=== PATIENT | female | born 1940 | race Caucasian/White ===

== ENCOUNTER 2019-04-28 08:13 | Inpatient (IN) | payer MEDICARE ==
[~2019-04-28 08:13] MED LIST: ACETAMINOPHEN 1,000 MG/100 ML BTL IVPB ONE; ACETAMINOPHEN 325 MG TAB PO PRN; ACETAMINOPHEN W/ CODEINE 300MG/30MG TABLET PO PRN; ACETAMINOPHEN W/ CODEINE 300MG/60MG TABLET PO PRN; AL HYDROX/MAG HYDROX 30ML UD PO PRN; BISACODYL 10 MG SUPP RC PRN; CELECOXIB 100 MG CAPSULE PO ONE; CLINDAMYCIN PHOS/D5W 900MG 900 MG/50 ML BAG IVPB ONE; DIPHENHYDRAMINE HCL 25 MG CAPSULE PO PRN; FAMOTIDINE 20MG TABLET PO ONE; HYDROCODONE/APAP 5/325MG TABLET PO PRN; HYDROCODONE/APAP 7.5/325MG TABLET PO PRN; HYDROMORPHONE HCL 2 MG/ML VIAL IM PRN; KETOROLAC 30 MG/ML VIAL IVP PRN; MAGNESIUM HYDROXIDE 30 ML UDC PO PRN; METOCLOPRAMIDE 10 MG TABLET PO ONE; METOCLOPRAMIDE HCL 10 MG/2 ML VIAL IVP PRN; NALOXONE 0.4 MG/1 ML VIAL IVP PRN; ONDANSETRON HCL IV 4 MG/2 ML VIAL IVP PRN; PROMETHAZINE HCL 12.5 MG in 0.9 % SODIUM CHLORIDE 100ML 50 ML IVPB PRN; RINGERS SOLUTION,LACTATED 1,000 ML IV ONE; SCOPOLAMINE 1 PATCH TDSY TD ONE; TRAMADOL HCL 50 MG TABLET PO PRN; VANCOMYCIN 1GM/200ML PREMIX 1 GM/200 ML PIGGYBACK IVPB ONE; ZOLPIDEM TARTRATE 5 MG TABLET PO PRN
[2019-04-28] MEDS ORDERED: RINGERS SOLUTION,LACTATED 1,000 ML IV ONE ×2 (08:55→10:38)
[2019-04-28 09:22] LABS: ABO GROUP A; ANTIBODY SCREEN NEGATIVE (NEGATIVE); RH TYPE POSITIVE
[2019-04-28] MEDS ORDERED: BUPIVACAINE 0.5% W/EPI MPF 30 ML VIAL SQ ONE (10:29)
[2019-04-28] MEDS ORDERED: BUPIVACAINE LIPOSOME 266MG/20ML VIAL SQ ONE (10:29)
[2019-04-28] MEDS ORDERED: VANCOMYCIN HCL 3,000 MG in RINGERS SOLUTION,LACTATED 3,000 ML IVPB ONE (10:39)
[2019-04-28] MEDS ORDERED: DEXTROSE 5 % AND 0.9 % NACL 1,000 ML IV PRN (12:30)
[2019-04-28] MEDS ORDERED: ROPIVACAINE HCL (NAROPIN) /PF 5MG/ML 20ML VIAL IV ONE (14:00)
[2019-04-28] MEDS ORDERED: DEXAMETHASONE 4 MG/ML 1ML VIAL IVP ONE (14:00)
[2019-04-28] MEDS ORDERED: BENZONATATE 100 MG CAPSULE PO PRN (15:15)
--- NOTE | 2019-04-28 15:51 | Rehab Evaluation ---
Patient Information - Patient Information Diagnosis: DJD Left Knee Ordered Treatment: PT Evaluate and Treat Status: Initial Evaluation Surgery: Yes (L TKA) Date of Surgery: 04/28/19 Past Medical/Surgical Hx: PAST MEDICAL/SURGICAL HISTORY Surgery to Affected Area? No Recent Surgery? Past Surgical History Right total knee 2005 Hysterectomy 1975 cholecystectomy in x2 surgeries on neck, including a plate in neck 1998 tubes placed in ears PMH - Respiratory Hx Respiratory Disorders Yes Hx Bronchitis Yes Hx Chronic Obstructive Yes Pulmonary Disease (COPD) Hx Sleep Apnea Yes Hx of CPAP No Hx of URI Yes: none recent Hx of Productive Cough Yes: none recent PMH - Cardiovascular Hx Cardiovascular Disorders Yes Hx Cardiac Catheterization Yes: x2, 2014 last one Hx Chest Pain Yes Hx Edema Yes Hx Hypertension Yes Exercise Tolerance Fair Comment: has recorder placed to heart, no longer recording PMH - Neuro Hx Neurological Disorders Yes Hx Seizures Yes: last seizure was in 2008 Hx Syncope Yes PMH - GI Hx Gastrointestinal Disorders Yes Hx Gastroesophageal Reflux Yes Hx Irritable Bowel Yes PMH - Hx Genitourinary Disorders Yes Hx Urinary Tract Infection Yes: last 1 month ago in february PMH - Endocrine Hx Endocrine Disorders Yes Hx Thyroid Disease Yes PMH - Musculoskeletal Hx Musculoskeletal Disorders Yes Hx Arthritis Yes PMH - Psych Hx Psychiatric Problems Yes Hx Anxiety Yes Hx Depression Yes Comment: Lost all three children last few years PMH - Hematology/Oncology Hx Hematology/Oncology No Disorders Premorbid Status: Detail (Patient reports that prior to surgery, patient reported assistance with activities of daily living from her granddaughter and her . Patient reports that she has a 4-wheel walker, straight cane, and 4-point cane available at home.) Social History: Detail (Patient reports that she lives in a 2-story home with her granddaughter, her , and their children. She reports that she will be staying on the main floor following surgery. Patient reports that there are 3 1/2 steps entering the home and patient ascends/descends stairs side stepping holding on to one railing with bilateral hands. Patient reports that bathroom has a tub/shower combination with grab bars available and hand-held shower component. Patient reports that she has a shower bench available for the shower. Patient reports that the toilet is standard height with no grab bars available. However, patient reports that shower is small enough that she can use the sink in front for support if needed. Patient reports that she will be attending inpatient rehab following discharge and plans to stay there for at least 2 weeks. Upon discharge from inpatient rehab, patient plans on leaving in [facility].) - Time With Patient Total Time Spent With Patient (Min): 20 Subjective Information - Subjective Information Per Patient (Patient reports no pain throughout therapy session. Patient reports that her surgical knee already "bends" more than it did prior to surgery.) Objective Data - Mental Status Patient Orientation: Oriented x3 - ROM Not within normal limits (Patient's range of motion was assessed functionally with bed mobility, sit to stand transfer, and ambulation. Patient's lower left extremity is limited due to post-surgical status, as expected. All other lower extremity range of motion was found to be within functional limits.) - Strength/Tone Not within normal limits (Patient's strength was assessed functionally with bed mobility, sit to stand transfer, and ambulation. Patient's left lower extremity has decreased strength due to post-surgical status, as expected. All other lower extremity range of motion was grossly assessed and determined to be within functional limits.) - Coordination Appears within normal limits for therapeutic activities - Bed Mobility Independent (Patient was supine in bed at initial portion of therapy session. Patient completed transfer from supine to sitting L EOB and required lowering the bed to help with transition, but required only supervision assistance for safety.) - Transfers Independent (Patient completed sit to stand transfer from sitting L EOB with 2- wheeled walker for support and CGAx1 for safety.) - Gait Detail (Patient ambulated total of 123 feet using 2-wheeled walker for support and CGAx1 for safety. Patient demonstrated antalgic gait pattern, with decreased heel strike on left lower extremity and decreased knee flexion/extension, as expected due to post-surgical status.) Therapy Assessment - Therapy Assessment Detail (Patient was independent with bed mobility, sit to stand transfers, and ambulation requiring supervision/contact guard assistance for safety. Patient is recommended to receive follow-up appointment to assess stair training and post- surgical exercise program.) Problem List - Problem List Physical Therapy Problem List: Detail (1. Decreased left lower extremity strength due to post-surgical status. 2. Decreased left lower extremity range of motion due to post-surgical status. 3. Altered gait pattern due to compensations over time due to pain.) Goals - Goals Physical Therapy Goals: 1. Patient will ascend / descend 3 steps using bilateral hand rails. 2. Patient will be independent in home exercise program. Prognosis - Prognosis Good (With follow-up visit, patient is projected to meet physical therapy goals to help with transition to inpatient rehab. Patient is foreseen with additional therapy to progress towards independence in functional activities.) Plan - Plan Physical Therapy Plan: Patient will receive 1-2 visits for follow-up to assess stairs and home exercise program to assure that patient is prepared for discharge to inpatient rehab PT.
[2019-04-28] MEDS: BREO (FLUTICASONE/VILANTEROL) 200MCG/25MCG INHALER INH SCH (17:21)
[2019-04-28] MEDS ORDERED: PATIENT OWN MED: PROAIR HFA INH PRN (17:30)
[2019-04-28] MEDS: HYDROCODONE/APAP 7.5/325MG TABLET PO PRN (19:43)
[2019-04-28] MEDS: VANCOMYCIN 1GM/200ML PREMIX 1 GM/200 ML PIGGYBACK IVPB SCH (20:39)
[2019-04-28] MEDS: DOCUSATE SODIUM 100 MG CAPSULE PO SCH (21:08)
[2019-04-28] MEDS: CARVEDILOL 3.125 MG TABLET PO SCH (21:08)
[2019-04-28] MEDS: FERROUS SULFATE 325 MG TAB PO SCH (21:08)
[2019-04-28] MEDS ORDERED: EZETIMIBE 10 MG TABLET PO SCH (22:00)
[2019-04-28] MEDS ORDERED: PHENOBARBITAL 60 MG PO SCH (22:00)
[2019-04-28] MEDS ORDERED: TRAZODONE 50 MG TABLET PO SCH (22:00)
[2019-04-28] MEDS ORDERED: OXYBUTYNIN CHLORIDE 5MG TABLET PO SCH (22:00)
[2019-04-28] MEDS ORDERED: SIMVASTATIN 20 MG TABLET PO SCH (22:00)
[2019-04-29 06:40] LABS: HEMATOCRIT 30.4 % (35.0-47.0); HEMOGLOBIN 9.4 gm/dl (11.6-16.0)
[2019-04-29] MEDS: HYDROCODONE/APAP 7.5/325MG TABLET PO PRN ×2 (06:43→12:41)
[2019-04-29] MEDS ORDERED: LEVOTHYROXINE SODIUM 50 MCG TABLET PO SCH (07:00)
[2019-04-29] MEDS ORDERED: LEVOTHYROXINE SODIUM 100 MCG TABLET PO SCH (07:00)
[2019-04-29] MEDS: VANCOMYCIN 1GM/200ML PREMIX 1 GM/200 ML PIGGYBACK IVPB SCH (09:02)
[2019-04-29] MEDS ORDERED: VANCOMYCIN HCL 1 GM VIAL IVPB ONE (09:36)
[2019-04-29] MEDS ORDERED: TRANEXAMIC ACID 1,000 MG/10 ML ML IV ONE (09:36)
[2019-04-29] MEDS: BREO (FLUTICASONE/VILANTEROL) 200MCG/25MCG INHALER INH SCH (09:58)
[2019-04-29] MEDS ORDERED: LOSARTAN POTASSIUM 100 MG TABLET PO SCH (10:00)
[2019-04-29] MEDS ORDERED: PHENOBARBITAL 60 MG PO SCH (10:00)
[2019-04-29] MEDS ORDERED: PAROXETINE HCL 10 MG TABLET PO SCH (10:00)
[2019-04-29] MEDS ORDERED: HYDROCHLOROTHIAZIDE 25 MG TABLET PO SCH (10:00)
[2019-04-29] MEDS ORDERED: LISINOPRIL 10 MG TABLET PO SCH (10:00)
[2019-04-29] MEDS ORDERED: CELECOXIB 100 MG CAPSULE PO SCH (10:00)
[2019-04-29] MEDS ORDERED: RIVAROXABAN 10 MG TABLET PO SCH (10:00)
--- NOTE | 2019-04-29 10:03 | Rehab Evaluation ---
Patient Information - Patient Information Diagnosis: DJD Left Knee Ordered Treatment: OT Evaluate and Treat Status: Initial Evaluation Surgery: Yes (L TKA) Date of Surgery: 04/28/19 Past Medical/Surgical Hx: PAST MEDICAL/SURGICAL HISTORY Surgery to Affected Area? No Recent Surgery? Past Surgical History Right total knee 2005 Hysterectomy 1975 cholecystectomy in x2 surgeries on neck, including a plate in neck 1998 tubes placed in ears PMH - Respiratory Hx Respiratory Disorders Yes Hx Bronchitis Yes Hx Chronic Obstructive Yes Pulmonary Disease (COPD) Hx Sleep Apnea Yes Hx of CPAP No Hx of URI Yes: none recent Hx of Productive Cough Yes: none recent PMH - Cardiovascular Hx Cardiovascular Disorders Yes Hx Cardiac Catheterization Yes: x2, 2014 last one Hx Chest Pain Yes Hx Edema Yes Hx Hypertension Yes Exercise Tolerance Fair Comment: has recorder placed to heart, no longer recording PMH - Neuro Hx Neurological Disorders Yes Hx Seizures Yes: last seizure was in 2008 Hx Syncope Yes PMH - GI Hx Gastrointestinal Disorders Yes Hx Gastroesophageal Reflux Yes Hx Irritable Bowel Yes PMH - Hx Genitourinary Disorders Yes Hx Urinary Tract Infection Yes: last 1 month ago in february PMH - Endocrine Hx Endocrine Disorders Yes Hx Thyroid Disease Yes PMH - Musculoskeletal Hx Musculoskeletal Disorders Yes Hx Arthritis Yes PMH - Psych Hx Psychiatric Problems Yes Hx Anxiety Yes Hx Depression Yes Comment: Lost all three children last few years PMH - Hematology/Oncology Hx Hematology/Oncology No Disorders Premorbid Status: Detail (Patient reports that prior to surgery, she was living with her granddaughter and her granddaughter's and kids and independent with ADLs. She was falling up to 3x/day d/t her L knee giving out. Patient reports that she lives in a 2-story home with 2 JOE and L HR that she holds with B UEs, she does not need to access the second floor. The bathroom has a tub/shower combination with a grab bar, shower chair, and hand-held shower hose. She typically stands to shower. Patient reports that the toilet is standard height with a grab bar. She has a FWW, 4WW, and single-point cane. She feels she is near functional baseline and would be okay going home.) Precautions: [place], Fall, Other (FWB L LE) - Time With Patient Total Time Spent With Patient (Min): 30 (1 eval) Treatment Procedures: Detail (OT eval: low complexity) Subjective Information - Subjective Information Per Patient (Ok to see per RN Jordyn. Pt agreeable to OT eval.) Objective Data - Pain Pain Present: No Pain Scale Used: Numeric (1 - 10) (0/10) - Mental Status Patient Orientation: Oriented x3 - Visual Perception Appears within normal limits for therapeutic activities - ROM Within normal limits (B UEs WFL) - Strength/Tone Within normal limits (B UE WFL) - Coordination Appears within normal limits for therapeutic activities - Bed Mobility Independent (supine > EOB) - Transfers Independent (sit >< stand from low surfaces with FWW and/or GB, good balance) - Balance Balance Sitting: Good Balance Standing: Good (standing pant mgmt at toilet with light use of GB to R side which Pt reports she has next to her toilet at home) - Sensation Intact - Gait Detail (Functional mobility within bedroom with FWW and CGA progressing to MOD I, no safety concerns and good balance.) - ADL's/IADL's Detail (OT educates PT on modified technique for LB dressing, Pt demos MOD I to don underwear, pants, socks with good standing pant mgmt and use of adaptive technique. Pt demos MOD I with use of GB for simulated tub/shower TF and verbalizes understanding of therapist education re: home safety with showering, kitchen, and bathroom.) Therapy Assessment - Therapy Assessment Detail (Pt demos good safety and modified independence with all ADLs and functional TFs with FWW and appears safe for DC home when medically ready. Pt is agreeable to home DCP and feels she will have no troubles at home, "if anything I'm better than before, my knee isn't giving out.") Patient Education - Patient Education Teaching Topic: Other (adaptive techniques, home mods) Response: Return Demonstration, Verbalize Understanding Teaching Method: Discussion, Demonstration Teaching Recipient: Patient Barriers To Learning: None Problem List - Problem List Physical Therapy Problem List: Detail (1. Decreased left lower extremity strength due to post-surgical status. 2. Decreased left lower extremity range of motion due to post-surgical status. 3. Altered gait pattern due to compensations over time due to pain.) Occupational Therapy Problem List: Detail (No further IP OT needs identified.) Goals - Goals Physical Therapy Goals: 1. Patient will ascend / descend 3 steps using bilateral hand rails. 2. Patient will be independent in home exercise program. Occupational Therapy Goals: No further IP OT needs/goals identified. Prognosis - Prognosis Good Plan - Plan Physical Therapy Plan: Patient will receive 1-2 visits for follow-up to assess stairs and home exercise program to assure that patient is prepared for discharge to inpatient rehab PT. Occupational Therapy Plan: No further IP OT needs identified. DC IP OT. Thank you for this referral.
[2019-04-29] MEDS: CARVEDILOL 3.125 MG TABLET PO SCH (10:53)
[2019-04-29] MEDS: DOCUSATE SODIUM 100 MG CAPSULE PO SCH (10:53)
[2019-04-29] MEDS: FERROUS SULFATE 325 MG TAB PO SCH (10:53)
--- NOTE | 2019-04-29 11:04 | Physical Therapy Tx Note ---
Physical Therapy Tx Note - Treatment Note Tolerated: Good Total Time Spent With Patient: 25 Physical Therapy Tx Note: Detail (Patient began therapy in recliner with family member present in room. Patient reports that she had received medication prior to therapy and her pain had dropped to 3/10. Patient completed sit to stand transfer from recliner using 4-wheeled walker for support and SBAx1 for safety. Verbal cueing was required for locking the walker prior to transfering. Patient then ambulated total distance of 120 feet with 4-wheeled walker and SBAx1. Patient then ascended and descended 3 steps with one railing and folded 2- wheeled walker for bilateral hand support with CGAx2 for safety. Patient was then returned to room and completed standing pivot transfer to the right using 4-wheeled walker for support and required verbal cueing for hand placement for safety. Patient completed ankle pumps and heel slide exercises on the L EOB. Patient then transfered from L EOB to supine with supervision assistance x1. Patient was instructed on isometric quad contractions, isometric hamstring curls, isometric glut squeezes, and SLR while supine in bed. Patient completed all post-operative exercises correctly and was deemed independent. At the end of session, patient's family member reported that she did not believe that patient needed rehab PT and could return home with her. manager case was contacted by therapist to inform her of changes. Patient was left supine in bed with call light in reach.) Physical Therapy Problem List: Detail (1. Decreased left lower extremity strength due to post-surgical status. 2. Decreased left lower extremity range of motion due to post-surgical status. 3. Altered gait pattern due to compensations over time due to pain.) Physical Therapy Goals: 1. Patient will ascend / descend 3 steps using bilateral hand rails. (met). 2. Patient will be independent in home exercise program. (met) Physical Therapy Plan: Patient has met all inpatient goals and is discharged at this time.
[2019-04-29] MEDS ORDERED: MIDAZOLAM HCL 2MG/2ML VIAL IV ONE (15:59)
[2019-04-29] MEDS ORDERED: KETAMINE HCL 100MG/1ML VIAL INJ ONE (15:59)
[2019-04-29] MEDS ORDERED: LIDOCAINE 2% MDV (20MG/ML) 20ML VIAL IV ONE (15:59)
[2019-04-29] MEDS ORDERED: PROPOFOL 10 MG/ML VIAL IV ONE (15:59)
--- NOTE | 2019-04-30 06:10 | Operative Note ---
DATE OF SURGERY: 04/28/2019 PREOPERATIVE DIAGNOSIS: End-stage left knee arthrosis. POSTOPERATIVE DIAGNOSIS: End-stage left knee arthrosis. OPERATION: Left total knee arthroplasty. SURGEON: Bradly Delaney MD ANESTHESIA: Spinal, FRANKLIN Ralph. COMPLICATIONS: None. ESTIMATED BLOOD LOSS: Minimal. OPERATIVE FINDINGS: [id number] medial compartment arthrosis. COMPONENTS PLACED: A 2 g vancomycin cemented [employer] II Oxinium total knee arthroplasty system size 5 femoral component, a size 3 tibial baseplate, a 9 mm thick tibial poly insert, and 29 mm cemented patellar component. INDICATIONS: This is a 78-year-old female with end-stage left knee arthrosis who failed nonoperative treatment. Scheduled for knee replacement. I explained all risks and benefits in detail for the diagnosis and procedure including but not limited to infection, nerve injury, vessel injury, persistent pain, stiffness, numbness, tingling in the knee, periprosthetic fracture, need for resection arthroplasty if components become infected or loosen, nerve injury, vessel injury, blood clot, and need for further procedures. All her questions were answered. Rehab and healing course was outlined. She agreed to proceed. PROCEDURE: The patient brought to the OR, placed in the supine position, prepped for surgery. Spinal anesthesia induced. The left lower extremity and knee prepped and draped in sterile fashion. Left knee was prepped again with Chloraprep after it was draped. Intraoperative timeout was performed. Next, the knee incision was infiltrated with 0.5% Marcaine with epinephrine, Exparel, tranexamic mixture. We exsanguinated the knee with Esmarch. Flexed the knee, inflated the tourniquet to 250 mmHg pressure. Next, skin and subcutaneous tissue dissected down. Incised the capsule medially along the medial border of the patella to the tibial tubercle. Incised the vastus medialis in line with its fibers in a mid vastus approach. I partially resected the retropatellar fat pad, elevated the capsule subperiosteally and medially, flexed the knee, everted the patella. She had [id number] tri- compartment arthrosis basically. Drilled intracondylar drill hole and inserted intramedullary guide ayanna and the 6-degree cutting block off the distal femoral condyles. Pinned it in place and cut the distal femoral condyle in +2 mm position. Next, we placed a sizing jig on the distal femoral condyle and sized it to be right on size 5. Through previously-placed pin holes, we placed the 5-in-1 cutting jig, we dialed the anterior cut so it would come out flush without notching. We cut that cut, and it was a good cut. We then pinned in and cut the remainder of the chamfer cuts in the usual fashion. Placed a size 5 femoral component, centered it, pinned it, removed osteophytes off the periphery, inserted the resection collet and reamed down and box osteotomed out with the cruciate bone block. Next, attention was turned to the tibia. Seated the external alignment jig with the spikes in the tubercular groove off the central 1/3 of the tibial tubercle with 2 fingerbreadths distal off the anterior tibial cortex and referenced for a 9 mm cut off the higher medial plateau. It was valgus knee. We pinned the cutting jig provisionally with 3 anterior-posterior pins. We then rechecked alignment of the cutting jig using a drop ayanna centered on the tibial anatomic axis and cut the tibia. Next, we removed osteophytes off the posterior femoral condyle. Checked the flexion/extension gaps. She had symmetric flexion/extension gaps with a 9 mm thick poly insert. There was 1-2 mm of varus/valgus laxity in flexion/extension. Overall alignment cuts in extension with alignment ayanna centered anatomic valgus orientation, alignment ayanna centered on the hip joint and ankle joint. Took the knee in flexion, sized the tibial baseplate to a size 3, replaced all trial components, set the rotation tibial baseplate again in extension with alignment ayanna centered on hip joint and ankle joint. Marked electrocautery diaz off the anterior tibial cortex and off the laser diaz of tibial baseplate. Next, attention was turned to the patella, measured the patella. Set the cutting jig at 13 mm to allow for a 9 mm thick poly insert. Cut the patella. Chamfered off the lateral patellar facet and medialized as much as possible. Sized to be 29. Drilled 3 peg holes. Mixed cement. The patella tracked nicely hands free, had full extension, flexion to 120-130 degrees with again symmetric flexion/extension gap. Next, took the knee in flexion, seated the tibial baseplate off the previously placed electrocautery diaz, pinned it in place, and reamed out keel punch and keel hole. Next, we put a bone plug in the femoral canal hole. Changed gloves, brought in clean sheet, copiously irrigated bony surfaces with pulse lavage and antibiotic solution. Precut bony surfaces, impacted down the tibial component and then the femoral component. Placed the trial tibial poly liner, held the knee in extension, clamped down on the patellar component until the cement hardened. Once the cement had hardened, we removed excess cement, took the knee in flexion, extracted the knee bone hook and sponge. Then injected the posterior capsule with 0.5% Marcaine, Exparel, tranexamic acid mixture and inserted the real tibial poly insert. Verified it was interlocked medially and laterally. We then continued with our infiltration of our mixture from deep superficial, medial and lateral periosteum, patellar tendon, vastus medialis, quadriceps, and subcutaneous areas. Next, we closed the capsule in flexion using running #2 quill suture securely. Irrigated again and closed the skin with 2-0 Vicryl. Provisional dressings applied and will change that to PALLAVI dressing prior to discharge. The patient tolerated the procedure well. No intraoperative complications. Sponge, needle, and blade counts correct. Recovery room stable, neurovascularly intact. Discharge after 3 days of rehab and will follow up in 2 weeks. CC: Luh KAPOOR
== END 2019-04-29 16:00 | disposition home health service (06) | DRG 470 ==
LOC: SUR 08:13 → MEDSURG 12:33 → SUR 12:33 → MEDSURG 12:33
PROVIDERS: ADMIT Orthopaedic Surgery; ATTEND Orthopaedic Surgery
PROC: 0SRD069 Replacement of Left Knee Joint with Oxidized Zirconium on Polyethylene Synthetic Substitute, Cemented, Open Approach (ICD-10-PCS; principal; 2019-04-28 10:00)
DX: M17.12 Unilateral primary osteoarthritis, left knee (principal); I10 Essential (primary) hypertension; E78.00 Pure hypercholesterolemia, unspecified; E03.9 Hypothyroidism, unspecified; R56.9 Unspecified convulsions; J44.9 Chronic obstructive pulmonary disease, unspecified; G47.33 Obstructive sleep apnea (adult) (pediatric); Z98.61 Coronary angioplasty status
CPT/HCPCS: 76942; 85014; 85018; 86850; 86900; 86901; 94640; 97110; C1776; J1885; J3370; J3490; J7042; J7120